=== PATIENT | female | born 1960 | race Caucasian/White ===

== ENCOUNTER → 2018-10-10 | Outpatient (CLI) | payer BC ==
--- NOTE | 2018-10-10 14:22 | Diagnostic Imaging Report ---
PROCEDURE: US Thyroid. TECHNIQUE: Multiple real-time grayscale images were obtained of the thyroid in various projections. INDICATION: Dawna's thyroiditis. COMPARISON: None available. TECHNIQUE: Thyroid ultrasound performed on 10/10/2018. FINDINGS: The right lobe of the thyroid gland measures 4.0 x 1.7 x 1.3 cm. The left lobe of thyroid measures 4.0 x 1.6 x 1.1 cm. The thyroid gland appears mildly heterogeneous without focal nodule. No significant hyperemia. IMPRESSION: 1. Mild heterogeneity of the thyroid gland without discrete thyroid nodule. 2. No significant hyperemia of the thyroid gland. Dictated by: Dictated on workstation # [id number]
[2018-10-10 15:52] LABS: FREE T4 (FREE THYROXINE) 0.87 NG/DL (0.70-1.48)
== END ==
LOC: RAD FS 11:51
PROVIDERS: ATTEND Internal Medicine Endocrinology, Diabetes & Metabolism
DX: E06.3 Autoimmune thyroiditis (principal)
CPT/HCPCS: 36415; 76536; 84439; 84443

== ENCOUNTER 2019-05-01 04:59 | Emergency (ER) | payer BC ==
[~2019-05-01] VITALS: Ht 165.1 cm; Wt 109.0 kg
[2019-05-01] MEDS ORDERED: KETOROLAC 30 MG/ML VIAL IVP ONE (05:15)
[2019-05-01] MEDS ORDERED: morphine INJ 10 MG/ML 1ML (SYR OR VIAL) IVP STA ×2 (05:15→06:43)
--- NOTE | 2019-05-01 05:22 | ED Abdominal Pain ---
General Chief Complaint: Abdominal/GI Problems Stated Complaint: PAIN LEFT SIDE History of Present Illness Date Seen by Provider: May 01, 2019 Time Seen by Provider: 05:05 Initial Comments The patient is a 58-year-old female with a reported medical history of hypertension, hyperlipidemia, paroxysmal atrial fibrillation on Eliquis and digoxin, reported history of bilateral nephrolithiasis in the past. She presents for evaluation of acute onset of rather significant left flank discomfort which is nonradiating and sharp and without exacerbating or ameliorating factors, all with onset over the past couple of hours. Patient appears uncomfortable. Associated nausea without vomiting. No associated fevers, upper respiratory congestion, rhinorrhea, cough, shortness of breath or chest pain, focal abdominal pain of any kind of the patient acknowledges some sensation of abdominal bloating, dysuria, hematuria or oliguria, changes in bowel habits (patient acknowledges some mild chronic constipation which is unchanged r ecently). (PETRONA MERRILL MD) Allergies and Home Medications Allergies Coded Allergies: amoxicillin (Verified Allergy, Unknown, 05/01/19) ceftriaxone (Verified Allergy, Unknown, 05/01/19) clavulanic acid (Verified Allergy, Unknown, 05/01/19) Uncoded Allergies: PCN (Allergy, Unknown, 05/01/19) Home Medications Ondansetron 4 Mg Tab.rapdis, 4 MG PO Q6H Prescribed by: STACEY SAHNI on 05/01/19 0734 Oxycodone HCl/Acetaminophen 1 Each Tablet, 1 TAB PO Q4H PRN for PAIN-MODERATE Prescribed by: STACEY SAHNI on 05/01/19 0734 Tamsulosin HCl 0.4 Mg Cap, 0.4 MG PO DAILY Prescribed by: STACEY SAHNI on 05/01/19 0734 Patient Home Medication List Home Medication List Reviewed: Yes (PETRONA MERRILL MD) Review of Systems Review of Systems Constitutional: see HPI (PETRONA MERRILL MD) All Other Systems Reviewed Negative Unless Noted: Yes (Negative excepted noted.) (PETRONA MERRILL MD) Past Tfbifuo-Eumcfb-Jciyir Hx Past Med/Social Hx: Reviewed Nursing Past Med/Soc Hx (PETRONA MERRILL MD) Patient Social History Recent Foreign Travel: No Contact w/Someone Who Travel: No (PETRONA MERRILL MD) Family Medical History Reviewed Nursing Family Hx (PETRONA MERRILL MD) Physical Exam Vital Signs Vital Signs - First Documented 05/01/19 05:34 Temp 36.9 Pulse 98 Resp 24 B/P (MAP) 159/100 (119) Pulse Ox 96 O2 Delivery Room Air (STACEY SAHNI DO) Vital Signs Capillary Refill : (PETRONA MERRILL MD) Height/Weight/BMI Height: '" Weight: lbs. oz. kg; BMI Method: General Appearance: no apparent distress Exam Comments This is an alert female appearing nontoxic and in no acute distress. Head is normocephalic and atraumatic. Neck is supple and nontender. Oropharynx is moist. Lungs are clear to auscultation in all stations. There is a normal S1 and S2 without rubs or gallops and capillary refill is appropriate, less than 2 seconds globally. Abdomen is soft, nontender and nondistended and without appreciable pulsatile mass noted. Examination of the back reveals mild left flank tenderness without ear edema, warmth or swelling and without midline back tenderness noted. Skin is warm and dry without cyanosis, clubbing or edema. Psychiatrically, the patient demonstrates appropriate mood and affect and is alert. (PETRONA MERRILL MD) Progress/Results/Core Measures Results/Orders Lab Results Laboratory Tests Test 05/01/19 05:05 05/01/19 05:25 Range/Units Urine Color BROWN H Urine Clarity CLOUDY Urine pH 5.5 5-9 Urine Specific [place] >=1.030 1.016-1.022 Urine Protein 2+ H NEGATIVE Urine Glucose (UA) NEGATIVE NEGATIVE Urine Ketones NEGATIVE NEGATIVE Urine Nitrite NEGATIVE NEGATIVE Urine Bilirubin NEGATIVE NEGATIVE Urine Urobilinogen 0.2 < = 1.0 MG/DL Urine Leukocyte Esterase TRACE H NEGATIVE Urine RBC (Auto) 3+ H NEGATIVE Urine RBC >100 H /HPF Urine WBC 10-25 H /HPF Urine Squamous Epithelial Cells 5-10 /HPF Urine Crystals NONE /LPF Urine Bacteria TRACE /HPF Urine Casts NONE /LPF Urine Mucus NEGATIVE /LPF Urine Culture Indicated YES White Blood Count 7.6 4.3-11.0 10^3/uL Red Blood Count 4.45 4.35-5.85 10^6/uL Hemoglobin 13.1 11.5-16.0 G/DL Hematocrit 40 35-52 % Mean Corpuscular Volume 90 80-99 FL Mean Corpuscular Hemoglobin 29 25-34 PG Mean Corpuscular Hemoglobin Concent 33 32-36 G/DL Red Cell Distribution Width 14.0 10.0-14.5 % Platelet Count 183 130-400 10^3/uL Mean Platelet Volume 11.8 H 7.4-10.4 FL Neutrophils (%) (Auto) 58 42-75 % Lymphocytes (%) (Auto) 32 12-44 % Monocytes (%) (Auto) 7 0-12 % Eosinophils (%) (Auto) 2 0-10 % Basophils (%) (Auto) 1 0-10 % Neutrophils # (Auto) 4.4 1.8-7.8 X 10^3 Lymphocytes # (Auto) 2.4 1.0-4.0 X 10^3 Monocytes # (Auto) 0.5 0.0-1.0 X 10^3 Eosinophils # (Auto) 0.2 0.0-0.3 10^3/uL Basophils # (Auto) 0.1 0.0-0.1 10^3/uL Prothrombin Time 13.8 12.2-14.7 SEC INR Comment 1.0 0.8-1.4 Activated Partial Thromboplast Time 36 H 24-35 SEC Sodium Level 140 135-145 MMOL/L Potassium Level 4.4 3.6-5.0 MMOL/L Chloride Level 103 98-107 MMOL/L Carbon Dioxide Level 23 21-32 MMOL/L Anion Gap 14 5-14 MMOL/L Blood Urea Nitrogen 19 H 7-18 MG/DL Creatinine 0.78 0.60-1.30 MG/DL Estimat Glomerular Filtration Rate > 60 BUN/Creatinine Ratio 24 Glucose Level 130 H 70-105 MG/DL Calcium Level 9.3 8.5-10.1 MG/DL Corrected Calcium 9.0 8.5-10.1 MG/DL Total Bilirubin 0.4 0.1-1.0 MG/DL Aspartate Amino Transf (AST/SGOT) 24 5-34 U/L Alanine Aminotransferase (ALT/SGPT) 26 0-55 U/L Alkaline Phosphatase 74 40-136 U/L Total Protein 7.4 6.4-8.2 GM/DL Albumin 4.4 3.2-4.5 GM/DL (ROVENSTINE,STACEY L DO) My Orders Orders - ROVENSTINE,STACEY L DO Ns Iv 1000 Ml (Sodium Chloride 0.9%) (05/01/19 06:30) Morphine Injection (Morphine Injection (05/01/19 06:43) (STACEY SAHNI DO) Medications Given in ED Current Medications Medications Dose Ordered Sig/Kellie Route Start Time Stop Time Status Last Admin Dose Admin Ketorolac Tromethamine 30 mg ONCE ONCE IVP 05/01/19 05:15 05/01/19 05:19 DC 05/01/19 05:27 30 MG Ondansetron HCl 4 mg ONCE ONCE IVP 05/01/19 06:15 05/01/19 06:16 DC 05/01/19 06:10 4 MG (STACEY SAHNI DO) Vital Signs/I&O 05/01/19 05:34 Temp 36.9 Pulse 98 Resp 24 B/P (MAP) 159/100 (119) Pulse Ox 96 O2 Delivery Room Air (STACEY SAHNI DO) Progress Progress Note : Time: 05:25 Progress Note 58-year-old female with acute onset of rather significant sharp nonradiating left flank discomfort. Seems only very minimally reproducible to palpation. History of prior bilateral nephrolithiasis per patient. We'll start with IV, IV fluids and medication for discomfort and nausea and we'll check labs and urine and we'll then reevaluate. Patient will minimally require advanced imaging of her abdomen and pelvis for disposition. Update 0600: Transition of care to Dr. Sahni at this time pending labs, imaging and re-evaluation for disposition. (PETRONA MERRILL MD) Progress Note : Progress Note patient seen and examined at shift change, additional 4mg MSO4 given and pt doing well . Reviewed labs and UA. CT report w 12mm left UPJ stone w mild [place]. Pt tolerating very well considering. Discussed outpatient Uro follow-up. Pt previously has seen a Urologist in [place]. Advised to see previous Uro or to f/u w Dr James in [place]. Given CT on CD as well as printed report. Rx's discussed and ER f/u advised if pain unbearable. Looks remarkably well considering 12mm stone. No Abx given as pt says she has been on an Abx for the last wk (started for blood in her urine) (STACEY SAHNI DO) Departure Impression Primary Impression: Ureterolithiasis Additional Impression: Left flank pain Disposition: 01 HOME, SELF-CARE Condition: Stable Departure-Patient Inst. Decision time for Depature: 07:31 (STACEY SAHNI DO) Referrals: GALILEO RAM DO (PCP/Family) Primary Care Physician LAINEY JAMES MD Patient Instructions: Kidney Stone Diet, Kidney Stones (DC) Add. Discharge Instructions: All discharge instructions reviewed with patient and/or family. Voiced understanding. Call Dr James (or Urologist of your choice) this morning to arrange follow-up care. Strain all urine for the stone. Scripts Tamsulosin HCl (Flomax) 0.4 Mg Cap 0.4 MG PO DAILY, #7 CAP Prov: STACEY SAHNI DO 05/01/19 Ondansetron (Ondansetron Odt) 4 Mg Tab.rapdis 4 MG PO Q6H for Nausea/Vomiting, #10 TAB Prov: STACEY SAHNI DO 05/01/19 Oxycodone HCl/Acetaminophen (Percocet 5-325 mg Tablet) 1 Each Tablet 1 TAB PO Q4H PRN for PAIN-MODERATE MDD 6 for 7 Days, #20 TAB Prov: STACEY SAHNI DO 05/01/19 PETRONA MERRILL MD May 01, 2019 05:22 POSSTACYE SAHNI DO May 01, 2019 07:35 POS
[2019-05-01] MEDS: NS IV 1000 ML 1,000 ML IV SCH ×2 (05:28→06:12)
[2019-05-01 06:08] LABS: CLARITY,URINE CLOUDY; COLOR,URINE BROWN; PH,URINE 5.5 (5-9)
[2019-05-01 06:09] LABS: BACTERIA,URINE TRACE /HPF; BILIRUBIN,URINE NEGATIVE (NEGATIVE); GLUCOSE, URINE (UA) NEGATIVE (NEGATIVE); KETONES,URINE NEGATIVE (NEGATIVE); LEUKOCYTE ESTERASE ,URINE TRACE (NEGATIVE); NITRITE,URINE NEGATIVE (NEGATIVE); PROTEIN,URINE 2+ (NEGATIVE); RBC,URINE >100 /HPF
[2019-05-01 06:11] LABS: BASOPHILS % (AUTO) 1 % (0-10); EOSINOPHILS % (AUTO) 2 % (0-10); HEMATOCRIT 40 % (35-52); HEMOGLOBIN 13.1 G/DL (11.5-16.0); LYMPHOCYTES % (AUTO) 32 % (12-44); MEAN CORPUSCULAR HEMOGLOBIN 29 PG (25-34); MEAN CORPUSCULAR HGB CONC 33 G/DL (32-36); MEAN CORPUSCULAR VOLUME 90 FL (80-99); MEAN PLATELET VOLUME 11.8 FL (7.4-10.4); MONOCYTES % (AUTO) 7 % (0-12); NEUTROPHILS % (AUTO) 58 % (42-75); PLATELET COUNT 183 10^3/uL (130-400); WHITE BLOOD COUNT 7.6 10^3/uL (4.3-11.0)
[2019-05-01 06:12] LABS: BASOPHILS # (AUTO) 0.1 10^3/uL (0.0-0.1); EOSINOPHILS # (AUTO) 0.2 10^3/uL (0.0-0.3); LYMPHOCYTES # (AUTO) 2.4 X 10^3 (1.0-4.0); MONOCYTES # (AUTO) 0.5 X 10^3 (0.0-1.0); NEUTROPHILS # (AUTO) 4.4 X 10^3 (1.8-7.8)
[2019-05-01 06:14] LABS: PROTHROMBIN TIME PATIENT 13.8 SEC (12.2-14.7)
[2019-05-01] MEDS ORDERED: ONDANSETRON 4 MG/2 ML (SDV) Z0FRAN IVP ONE (06:15)
[2019-05-01 06:19] LABS: ALANINE AMINOTRANSFERASE 26 U/L (0-55); ALBUMIN 4.4 GM/DL (3.2-4.5); ALKALINE PHOSPHATASE 74 U/L (40-136); BILIRUBIN,TOTAL 0.4 MG/DL (0.1-1.0); BUN/CREATININE RATIO 24; CALCIUM 9.3 MG/DL (8.5-10.1); CARBON DIOXIDE 23 MMOL/L (21-32); CHLORIDE 103 MMOL/L (98-107); CREATININE SERUM 0.78 MG/DL (0.60-1.30); GFR ESTIMATED > 60; GLUCOSE 130 MG/DL (70-105); POTASSIUM 4.4 MMOL/L (3.6-5.0); SODIUM 140 MMOL/L (135-145); TOTAL PROTEIN 7.4 GM/DL (6.4-8.2)
[2019-05-01] MEDS ORDERED: NS IV 1000 ML 1,000 ML IV SCH (06:30)
--- NOTE | 2019-05-01 07:18 | Diagnostic Imaging Report ---
PROCEDURE: CT urinary tract, rule out kidney stone. TECHNIQUE: Multiple contiguous axial images were obtained through the abdomen and pelvis without the use of intravenous contrast. Auto Exposure Controls were utilized during the CT exam to meet ALARA standards for radiation dose reduction. DATE: May 01, 2019. COMPARISON: None. INDICATION: 58-year-old female, left flank pain. Hematuria. FINDINGS: There are limitations for evaluation of the abdominal organs, neoplastic processes, abscess, and limited evaluation of the vasculature relating to the lack of intravenous contrast. There is a 3 mm pleurally based right middle lobe pulmonary nodule on axial image 5. The heart is not enlarged. There is no pericardial effusion. The liver is unremarkable in size and contour. The gallbladder is unremarkable. There is no identified intrahepatic or extrahepatic bile duct dilation. The main pancreatic duct is not abnormally dilated. Limited noncontrast evaluation of the pancreatic parenchyma is unremarkable. The spleen is normal in size. The adrenal glands are unremarkable. There is a stone at the level of the left ureteropelvic junction which measures 12 mm in size. There is mild left hydronephrosis. There are additional punctate nonobstructing left renal stones on axial image 64 which measure 1 to 2 mm in size. There is a nonobstructing left renal stone measuring 5 mm in size on axial image 70 and additional punctate nonobstructing left renal stone measuring 1 to 2 mm in size on axial image 66. There is no additional stone present within the more distal aspect of the left ureter. There is no right ureteral stone or right hydronephrosis. There are nonobstructing right renal stones present. There is mild asymmetric perinephric stranding adjacent to the left kidney. The urinary bladder is grossly unremarkable in appearance. There are pelvic calcifications consistent with phleboliths. There is diverticulosis without evidence of acute diverticulitis. The intestinal tract is not distended. There is no evidence to suggest acute appendicitis. There is no free intraperitoneal air. There is no drainable fluid collection. There is no free pelvic fluid. There is a fat-containing umbilical hernia. There is no identified abnormally enlarged lymph node in the abdomen or pelvis which meets CT size criteria for adenopathy. There are degenerative changes of the spine. There is no identified acute bony abnormality. IMPRESSION: CT ABDOMEN AND PELVIS. 1. 12 mm stone at the level of the left ureteropelvic junction with associated mild left hydronephrosis. 2. Multiple nonobstructing bilateral renal stones. No right hydronephrosis or right ureteral stone. Dictated by: Dictated on workstation # [id number]
[2019-05-01] MEDS ORDERED: TAMS0.4C98 PO (07:34)
[2019-05-01] MEDS ORDERED: ONDA4TAB11 PO (07:34)
[2019-05-01] MEDS ORDERED: OXYC-199 PO (07:34)
[2019-05-01 07:41] VITALS: BP 168/97
== END 2019-05-01 07:46 | disposition home or self-care (01) ==
LOC: EDUNIT# 04:59 → ER FS 05:00
DX: N13.2 Hydronephrosis with renal and ureteral calculous obstruction (principal); I10 Essential (primary) hypertension; E78.5 Hyperlipidemia, unspecified; I48.0 Paroxysmal atrial fibrillation; Z79.01 Long term (current) use of anticoagulants; Z88.0 Allergy status to penicillin; Z88.1 Allergy status to other antibiotic agents
CPT/HCPCS: 36415; 74176; 80053; 80162; 81000; 85025; 85610; 85730; 87088

== ENCOUNTER → 2019-05-02 | Outpatient (CLI) | payer BC ==
[~2019-05-02] MED LIST: ONDA4TAB11 PO; OXYC-199 PO; TAMS0.4C98 PO
--- NOTE | 2019-05-03 08:12 | Diagnostic Imaging Report ---
INDICATION: Left flank pain. History of left UPJ calculus and bilateral nephrolithiasis. COMPARISON: CT dated 05/01/2019 FINDINGS: 2 frontal radiographic views of the abdomen were obtained. Again identified is a large calculus in the expected location of the right UPJ. It measures approximately 1.4 x 0.9 cm. Bilateral nephrolithiasis is also again noted. No unexpected radiopaque foreign bodies are seen. Small bowel loops are nondistended. There is no large collection of free intraperitoneal air. Osseous structures show no acute abnormalities. Moderate stool is noted within the cecum and ascending colon. IMPRESSION: 1. Redemonstration of large calculus in the expected location of the left UPJ as well as bilateral nephrolithiasis. 2. Moderate colonic air and stool. Please correlate for constipation. 3. Nonobstructive small bowel gas pattern. Dictated by: Dictated on workstation # [id number]
== END ==
LOC: RAD FS 12:37
PROVIDERS: ATTEND Urology
DX: N20.0 Calculus of kidney (principal)
CPT/HCPCS: 74018

== ENCOUNTER → 2019-05-17 | Outpatient (CLI) | payer BC | END | disposition home or self-care (01) | LOC: PREOP 05:31 | PROVIDERS: ATTEND Urology | DX: Z01.818 Encounter for other preprocedural examination (principal) ==

== ENCOUNTER → 2019-10-26 | Outpatient (CLI) | payer BC ==
[~2019-10-26] MED LIST changes: -TAMS0.4C98 PO; +TMSL.4C PO
--- NOTE | 2019-10-26 13:17 | Diagnostic Imaging Report ---
EXAM: Abdomen at 12:35 PM INDICATION: Right nephrolithiasis 2 supine views were obtained. The prior abdomen exam of 05/02/2019 noted a 1.4 x 0.9 cm calculus overlying the ureteropelvic junction on the left. There were also calcific densities overlying both kidneys. On this study, the large calculus overlying the left renal pelvis seen previously is no longer evident. There is now a triangular 9 mm calcific density overlying the inferior pole of the left kidney. On the prior exam, the calcification overlying the inferior pole of the left kidney measured only 4.1 mm. There is also a 15.0 mm calculus overlying the expected region of the right renal pelvis. This was not clearly evident on the prior exam. The previous study did show an 11.7 mm calcification overlying the superior pole of the right kidney. There is a similar appearing but smaller 6.8 mm calcification in this region on this exam. There is no sign of a calculus along the expected paths of the ureters. Phleboliths are again seen in the pelvis. No other abnormality of the abdomen was noted. IMPRESSION: 1. There are calcifications overlying both kidneys and, most likely, these are intrarenal. There is no sign of a calculus along the expected paths of the ureters however. 2. If further study is desired, then CT of the abdomen and pelvis would be recommended. Dictated by: Dictated on workstation # [id number]
== END ==
LOC: RAD FS 12:28
PROVIDERS: ATTEND Urology
DX: N20.0 Calculus of kidney (principal)
CPT/HCPCS: 74018

== ENCOUNTER → 2019-11-16 | Outpatient (CLI) | payer BC ==
--- NOTE | 2019-11-16 13:15 | Diagnostic Imaging Report ---
INDICATION: Bilateral nephrolithiasis. TECHNIQUE: 2 supine view of the abdomen 11:45 AM CORRELATION STUDY: 10/26/2019 FINDINGS: Previous imaging demonstrated approximately 15 x 7 mm area of calcification of the inferior right renal silhouette. This has largely decreased. Few smaller fragments do remain in this area. The somewhat triangular grouping of calcifications over the inferior pole left kidney at approximately 1 cm in size is generally stable. Calcifications over the pelvis are present. There is question of 1 smaller, 3 mm stone which could be projecting over the distal aspect of the right ureter proximal within the urinary bladder appearing slightly changed from prior. IMPRESSION: 1. Significant interval reduction in calcification over the inferior pole right kidney. Small grouped area of calcifications do remain. 2. Stable grouping of calcifications over the inferior pole of the left kidney. 3. Small calcification over the right pelvis. May simply represent phleboliths, does partially obscure on prior study. Possibly distal ureteral stone would be difficult to exclude. Correlation for symptoms. Dictated by: Dictated on workstation # [id number]
== END ==
LOC: RAD FS 11:33
PROVIDERS: ATTEND Urology
DX: N20.1 Calculus of ureter (principal)
CPT/HCPCS: 74018

== ENCOUNTER → 2020-06-17 | Outpatient (CLI) | payer BC ==
--- NOTE | 2020-06-17 17:46 | Diagnostic Imaging Report ---
INDICATION: Cough. TIME OF EXAM: 5:30 p.m. No prior chest radiographs are available for comparison. Heart size is normal. The lungs appear to be mostly clear although there is some questionable minimal patchy infiltrate in the right base. The pulmonary vascularity is normal. No effusion or pneumothorax is detected. IMPRESSION: Questionable minimal patchy right basilar infiltrate. Dictated by: Dictated on workstation # [id number]
== END ==
LOC: RAD FS 17:20
PROVIDERS: ATTEND Nurse Practitioner Family
DX: R05 Cough (principal); R06.02 Shortness of breath; R53.83 Other fatigue
CPT/HCPCS: 71046

== ENCOUNTER → 2020-12-15 | Outpatient (CLI) | payer BC ==
--- NOTE | 2020-12-15 16:36 | Diagnostic Imaging Report ---
INDICATION: Ureteral stone, follow-up. TIME OF EXAM: 1:26 PM CORRELATION is made with prior radiograph from 11/16/2019. There are several calcific densities overlying the lower poles of both kidneys, similar in appearance to prior examination from one year earlier. Pelvic calcifications appear similar. No definite calculi along the course of the ureters are seen. Bowel gas pattern is unremarkable. IMPRESSION: Bilateral intrarenal calculi. No definite calculi along the course of the ureters are identified. Dictated by: Dictated on workstation # [id number]
== END ==
LOC: RAD FS 13:14
DX: N20.2 Calculus of kidney with calculus of ureter (principal)
CPT/HCPCS: 74018

== ENCOUNTER → 2021-04-25 | Outpatient (CLI) | payer BC ==
--- NOTE | 2021-04-25 14:03 | Diagnostic Imaging Report ---
EXAMINATION: Abdominal radiographs, 2 views, upright spine. DATE: April 25, 2021. CLINICAL INDICATION: 60-year-old female, lower abdominal pain for one week with dysuria. COMPARISON: December 15, 2020. COMMENTS: There are calcifications projecting over both kidneys likely relating to renal stones. There are calcifications overlying the pelvis which appear similar in position to the comparison study. There are gas-filled segments of bowel which are not abnormally dilated. There is no identified free intraperitoneal air, pneumatosis, or portal venous gas. IMPRESSION: 1. Probable bilateral renal stones. 2. Pelvic calcifications may reflect phleboliths and/or stones in the urinary bladder and appears similar in appearance to the comparison exam. These are not particularly well localized. 3. Unremarkable bowel gas pattern. Dictated by: Dictated on workstation # [id number]
== END ==
LOC: RAD FS 12:03
PROVIDERS: ATTEND Nurse Practitioner Family
DX: R10.30 Lower abdominal pain, unspecified (principal); R30.0 Dysuria; Z87.442 Personal history of urinary calculi
CPT/HCPCS: 74019

== ENCOUNTER → 2021-12-10 | Outpatient (CLI) | payer BC ==
--- NOTE | 2021-12-10 12:03 | Diagnostic Imaging Report ---
INDICATION: History of ureteral calculus. COMPARISON: 04/25/2021 FINDINGS: Single frontal radiographic view of the abdomen was obtained. Renal shadows are partially obscured due to air and stool within the colon, but calculi are again identified projecting over the inferior poles of the bilateral renal shadows. Extraosseous calcifications are also again noted projecting over the pelvis. These are stable in appearance and are likely on the basis of phleboliths, although retained urinary bladder calcifications cannot be entirely excluded. Small bowel loops are nondistended. There is no large collection of free intraperitoneal air. No unexpected radiopaque foreign bodies are seen. IMPRESSION:. 1. Redemonstration of bilateral nephrolithiasis. 2. Stable pelvic calcifications, which are favored to represent phleboliths. 3. Nonobstructed small bowel gas pattern Dictated by: Dictated on workstation # [id number]
== END ==
LOC: RAD FS 10:50
PROVIDERS: ATTEND Urology
DX: N20.2 Calculus of kidney with calculus of ureter (principal)
CPT/HCPCS: 74018